=== PATIENT | female | born 1990 | race Caucasian/White ===

== ENCOUNTER 2017-01-17 21:43 | Emergency (ER) | payer OTHER | END 2017-01-17 22:32 | disposition home or self-care (01) | LOC: ER 21:43 | DX: S92.212A Displaced fracture of cuboid bone of left foot, initial encounter for closed fracture (principal); S93.402A Sprain of unspecified ligament of left ankle, initial encounter; Z98.51 Tubal ligation status; Z88.0 Allergy status to penicillin; Z88.6 Allergy status to analgesic agent; W17.89XA Other fall from one level to another, initial encounter; Y93.39 Activity, other involving climbing, rappelling and jumping off ==